=== PATIENT | female | born 1990 | race Caucasian/White ===

== ENCOUNTER 2016-09-04 19:57 | Emergency (ER) | payer MEDICAID ==
[~2016-09-04] VITALS: Ht 152.4 cm; Wt 74.0 kg
[~2016-09-04 19:57] MED LIST: METO10TA PO
[2016-09-04 19:59] VITALS: BP 125/66; PULSE 79; RESP 15; TEMP 98.5; O2SAT 98
[2016-09-04] MEDS ORDERED: SODIUM CHLORIDE 0.9% FLUSH 5 ML FLUSH IVF PRN (23:00)
[2016-09-04 23:52] LABS: BACTERIA, URINE RARE /hpf; BLOOD, URINE NEG (NEG); COMMENT (UR) CULT NOT INDICATED; CULTURE IF INDICATED CULT NOT INDICATED; GLUCOSE,URINE NEG (NEG); KETONE, URINE NEG (NEG); MUCUS URINE FEW /lpf (OCC); NITRITE,URINE NEG (NEG); PH, URINE 6.5 (5.0-8.5); SQUAMOUS EPITHELIAL CELL URINE 5 /hpf (0-5); URINE COLOR YELLOW (YELLW/STRAW)
[2016-09-05] MEDS ORDERED: CLOT1CRE23 VAGINAL (02:06)
[2016-09-05] MEDS ORDERED: MACR100C2 PO (02:06)
--- NOTE | 2016-09-05 02:08 | PD ---
HPI Chief Complaint: Related Problem Time Seen by Provider: 22:50 Travel History International Travel<30 days: No Contact w/Intl Traveler<30days: No Traveled to known affect area: No History of Present Illness HPI Patient is a pleasant 25-year-old female at approximately 8 weeks gestational age presents emergency Department with vaginal bleeding and lower quadrant abdominal cramping for the past week on and off. Patient states she has not had establishment with an MEDICAL SUPPORT ASSISTANT yet and has not had an ultrasound yet this . She states the pain is fairly mild but she did not have it with her previous pregnancies and one to be checked out. She denies any nausea vomiting diarrhea constipation or blood in the stool blood in her urine. States blood is very faint and comes in with some mild discharge. PFSH Past Medical History Diminished Hearing: No Reproductive: Yes (irregular periods) Influenza Vaccination: No ?: LMP: 06/23/16 : 3 Para: 2 Social History Alcohol Use: No Tobacco Use: No Substance Use: No Allergies-Medications (Allergen,Severity, Reaction): Coded Allergies: No Known Allergies (Verified , 09/04/16) Reported Meds & Prescriptions Reported Meds & Active Scripts Active Clotrimazole 7 Vaginal (Clotrimazole Vaginal) 1% Cream 1 Appl VAGINAL HS Macrobid (Nitrofurantoin Monoh/Nitrofur Macro) 100 Mg Cap 100 Mg PO BID 7 Days Review of Systems Except as stated in HPI: all other systems reviewed are Neg Physical Exam Narrative GENERAL: Well-developed well-nourished no apparent distress] SKIN: Warm and dry. HEAD: Atraumatic. Normocephalic. EYES: Pupils equal and round. No scleral icterus. No injection or drainage. ENT: No nasal bleeding or discharge. Mucous membranes pink and moist. NECK: Trachea midline. No JVD. CARDIOVASCULAR: Regular rate and rhythm. No murmur appreciated. RESPIRATORY: No accessory muscle use. Clear to auscultation. Breath sounds equal bilaterally. GASTROINTESTINAL: Abdomen soft, non-tender, nondistended. Hepatic and splenic margins not palpable. Genitourinary: Patient exam performed with female nurse industrial sweeper cleaner at all times, has trace vaginal blood mixed with her mucous. No cervical motion tenderness, cervix closed, no bimanual tenderness. No external lesion. There is scant discharge in the vaginal vault. MUSCULOSKELETAL: No obvious deformities. No clubbing. No cyanosis. No edema. NEUROLOGICAL: Awake and alert. No obvious cranial nerve deficits. Motor grossly within normal limits. Normal speech. PSYCHIATRIC: Appropriate mood and affect; insight and judgment normal. Data Data Last Documented VS Vital Signs Date Time Temp Pulse Resp B/P Pulse Ox O2 Delivery O2 Flow Rate FiO2 09/04/16 19:59 98.5 79 15 125/66 98 Room Air Orders Sodium Chloride 0.9% Flush (Ns Flush) (09/04/16 23:00) Ed Poc Ultrasound (09/04/16 22:50) Urinalysis - C+S If Indicated (09/04/16 23:12) Gc And Chlamydia Pcr (09/04/16 23:12) Wet Prep Profile (09/04/16 23:12) Labs Laboratory Tests Test 09/04/16 09/05/16 22:55 02:10 Urine Color YELLOW Urine Turbidity HAZY Urine pH 6.5 Urine Specific [place] 1.012 Urine Protein NEG mg/dL Urine Glucose (UA) NEG mg/dL Urine Ketones NEG mg/dL Urine Occult Blood NEG Urine Nitrite NEG Urine Bilirubin NEG Urine Urobilinogen LESS THAN 2.0 MG/DL Urine Leukocyte Esterase NEG Urine RBC LESS THAN 1 /hpf Urine WBC 4 /hpf Urine Squamous Epithelial 5 /hpf Cells Urine Bacteria RARE /hpf Urine Mucus FEW /lpf Urine Yeast (Budding) RARE Microscopic Urinalysis Comment CULT NOT INDICATED Clue Cells (Wet Prep) NONE SEEN Vaginal Trichomonas (Wet Prep) NONE SEEN Vaginal Yeast (Wet Prep) NONE SEEN Chlamydia trachomatis DNA NOT DETECTED (PCR) Neisseria gonorrhoeae DNA NOT DETECTED (PCR) [facility] Medical Decision Making Medical Screen Exam Complete: Yes Emergency Medical Condition: Yes Differential Diagnosis UTI, recent magnetic bacteria, yeast infection, ectopic , , round ligament pain Narrative Course Patient was roomed in the emergency department, she appears well and in no apparent distress. She was offered pain medicine and she declined. Pelvic exam does show some mild blood-tinged discharge which is very minimal. She does have yeast and bacteria in her urine. Consider contamination from bacterial source however there is not a curd-like discharge is visible. Bedside ultrasound is reassuring for intrauterine . Patient was counseled on early treatment and she feels better having seen the ultrasound. We'll cover with clotrimazole as well as Macrobid. She stable for discharge. Discussed adding multivitamins and follow him up with an MEDICAL SUPPORT ASSISTANT at her earliest venous. Positive by previous test here. Procedures Procedure Narrative Bedside transabdominal ultrasound: Patient's transabdominal bedside ultrasound shows a single intrauterine at approximately 8 weeks gestational age by crown-rump length. heart tones observed and measured by M-mode 156 please per minute. This early intrauterine . No gross abnormalities seen. Diagnosis Primary Impression: Yeast infection Additional Impression: Asymptomatic bacteriuria Med/Other Pt SpecificInfo: Prescription(s) given Scripts Clotrimazole Vaginal (Clotrimazole 7 Vaginal)1% Cream1 Appl VAGINAL HS #45 GM Ref 0 Prov:Cisco Milner MD 09/05/16 Nitrofurantoin Monohydrate Macrocrystals (Macrobid)100 Mg [id number] Mg PO BID 7 Days Ref 0 Prov:Cisco Milner MD 09/05/16 Disposition: 01 DISCHARGE HOME Condition: Stable Cisco Milner MD Sep 05, 2016 02:08
[2016-09-05 05:09] LABS: CHLAMYDIA PCR NOT DETECTED (NOT DETECT); NEISSERIA PCR NOT DETECTED (NOT DETECT)
[2016-11-12] MEDS ORDERED: MACR100C2 PO (14:41)
[2016-11-12] MEDS ORDERED: PREN1MIS11 PO (14:41)
[2016-11-12] MEDS ORDERED: METR0.7528 VAGINAL (14:41)
== END 2016-09-05 02:51 | disposition home or self-care (01) ==
LOC: NEPE 19:57
DX: O98.811 Other maternal infectious and parasitic diseases complicating pregnancy, first trimester (principal); B37.9 Candidiasis, unspecified; O26.891 Other specified pregnancy related conditions, first trimester; R82.71 Bacteriuria; R10.30 Lower abdominal pain, unspecified; Z3A.08 8 weeks gestation of pregnancy
CPT/HCPCS: 81001; 84703; 87210; 87491; 87591; 99284

== ENCOUNTER 2016-09-17 00:29 | Emergency (ER) | payer MEDICAID ==
[~2016-09-17] VITALS: Ht 157.5 cm; Wt 75.0 kg
[~2016-09-17 00:29] MED LIST changes: +CLOT1CRE23 VAGINAL; +MACR100C2 PO; -METO10TA PO
[2016-09-17 00:31] VITALS: BP 117/65; PULSE 73; RESP 16; TEMP 97.9; O2SAT 98
[2016-09-17] MEDS ORDERED: LIDOCAINE VISCOUS 2% SOLN 15 ML UDC OTHER STA (02:08)
--- NOTE | 2016-09-17 02:21 | PD ---
HPI Chief Complaint: ENT Complaint Time Seen by Provider: 02:20 Travel History International Travel<30 days: No Contact w/Intl Traveler<30days: No Traveled to known affect area: No History of Present Illness HPI Patient comes in complaining of bug in her ear that she awoke her from her sleep shortly prior to arrival. Patient denies doing anything for this prior to coming to the emergency department. Patient states she feels something crawling around in her right ear. Patient denies any pain or decreased hearing with this. PFSH Past Medical History Diminished Hearing: No Reproductive: Yes (irregular periods) ?: Unknown : 3 Para: 2 Social History Alcohol Use: No Tobacco Use: No Substance Use: No Allergies-Medications (Allergen,Severity, Reaction): Coded Allergies: No Known Allergies (Verified , 09/17/16) Reported Meds & Prescriptions Reported Meds & Active Scripts Active Clotrimazole 7 Vaginal (Clotrimazole Vaginal) 1% Cream 1 Appl VAGINAL HS Macrobid (Nitrofurantoin Monoh/Nitrofur Macro) 100 Mg Cap 100 Mg PO BID 7 Days Review of Systems Except as stated in HPI: all other systems reviewed are Neg Physical Exam Narrative GENERAL: Well-developed, well nourished, in no acute distress, and non-ill appearing. SKIN: Warm and dry. HEAD: Atraumatic. Normocephalic. EYES: Pupils equal and round. EOMI. No scleral icterus. No injection or drainage. ENT: No nasal bleeding or discharge. Mucous membranes pink and moist. Foreign body noted right auditory canal appears to be insect of some kind. Tympanic membrane pearly mata. NECK: Trachea midline. Supple. No nuclear rigidity. RESPIRATORY: No accessory muscle use. No respiratory distress. MUSCULOSKELETAL: No obvious deformities. No clubbing. No cyanosis. No edema. Full range of motion. NEUROLOGICAL: Awake and alert. No obvious cranial nerve deficits. Motor grossly within normal limits. Normal speech. PSYCHIATRIC: Appropriate mood and affect; insight and judgment normal. Data Data Last Documented VS Vital Signs Date Time Temp Pulse Resp B/P Pulse Ox O2 Delivery O2 Flow Rate FiO2 09/17/16 00:31 97.9 73 16 117/65 98 Room Air Orders Lidocaine 2% Viscous (Xylocaine 2% Visco (09/17/16 02:08) [facility] Medical Decision Making Medical Screen Exam Complete: Yes Emergency Medical Condition: Yes Differential Diagnosis Foreign body, otitis media, otitis externa, other Narrative Course Patient in no obvious distress upon re-evaluation. Any questions/concerns in reference to patient diagnosis/condition discussed and clarified prior to patient's discharge. Follow up with patient's primary physician or primary care clinic as needed. Instructed patient to return to ED immediately, if symptoms return/worsen. Pt showed understanding of above instructions. Further instructions and recommendations were detailed in discharge paperwork. Pt ambulated without difficulty out of ED at discharge. Procedures Procedure Narrative Verbal consent was obtained. Viscous lidocaine cane was placed in right auditory canal. Right ear was then flushed with insect being easily extracted. There is no complications. Patient tolerated procedure well Diagnosis Primary Impression: Foreign body of ear, right Qualified Code: T16.1XXA - Foreign body of ear, right, initial encounter Patient Instructions: Ear Foreign Body (GEN), General Instructions Additional Instructions: Follow-up with your primary care physician as needed. Return to the emergency department if symptoms get worse. Disposition: 01 DISCHARGE HOME Condition: Stable Cruz Pinedo Sep 17, 2016 02:21
[2016-11-12] MEDS ORDERED: PREN1MIS11 PO (14:41)
[2016-11-12] MEDS ORDERED: METR0.7528 VAGINAL (14:41)
[2016-11-12] MEDS ORDERED: MACR100C2 PO (14:41)
== END 2016-09-17 03:11 | disposition home or self-care (01) ==
LOC: NEPB 00:29
DX: T16.1XXA Foreign body in right ear, initial encounter (principal)
CPT/HCPCS: 69200

== ENCOUNTER 2017-04-08 18:56 | Inpatient (IN) | payer MEDICAID ==
[~2017-04-08] VITALS: Ht 152.4 cm; Wt 82.0 kg
[2017-04-08] VITALS (26 sets, daily range): BP systolic 107–177; BP diastolic 65–94; PULSE 75–150; RESP 18–20; TEMP 98.7
[~2017-04-08 18:56] MED LIST changes: -CLOT1CRE23 VAGINAL; +DIPHTH/TETANUS/ACEL PERTUSSIS (BOOSTER) 0.5 ML VIAL/PFS IM ONE; -MACR100C2 PO; +MEASLES, MUMPS, RUBELLA VACCINE 0.5 ML VIAL SQ ONE; +PREN1CHW7 PO; +PREN1MIS11 PO
[2017-04-08] MEDS ORDERED: LACTATED RINGER'S 1000 ML INJ 1,000 ML IV SCH (19:29)
[2017-04-08] MEDS ORDERED: LACTATED RINGER'S 1000 ML INJ 1,000 ML IV PRN (19:29)
[2017-04-08] MEDS ORDERED: OXYTOCIN 30 UNITS-500ML PREMIX 500 ML IV ONE (19:30)
[2017-04-08] MEDS ORDERED: MINERAL OIL 10 ML VIAL TOPICAL PRN (19:30)
[2017-04-08] MEDS ORDERED: LIDOCAINE HCL 1% 50 ML VIAL I-DERMAL PRN (19:30)
[2017-04-08] MEDS ORDERED: CITRIC ACID-SODIUM CITRATE LIQ 30 ML UDC PO SCH (19:30)
[2017-04-08] MEDS ORDERED: LIDOCAINE HCL 1% 50 ML VIAL INFIL PRN (19:30)
[2017-04-08] MEDS ORDERED: SODIUM CHLORID 0.9% 500 ML INJ 500 ML IV PRN (19:30)
--- NOTE | 2017-04-08 19:36 | HHI.HP ---
HPI Chief Complaint Contractions Date Seen: Apr 08, 2017 Time Seen: 19:33 Travel History International Travel<30 Days: No Contact w/Intl Traveler<30Days: No Known Affected Area: No History of Present Illness HPI 6-year-old 39 weeks [facility] presents clinically contractions. She is dilated 7 cm on admission in triage, contractions regular heart tones are within normal limits and her at reactive Weeks Gestation: 39 Para: 2 : 3 Last Menstrual Period: Apr 08, 2017 History Obstetric History Obstetric History 2 vaginal deliveries Social History Alcohol Use: No Tobacco Use: No Substance Abuse: No Allergies-Medications (Allergen,Severity, Reaction): Coded Allergies: No Known Allergies (Verified , 03/31/17) Home Meds Active Scripts Vit W/ Ferric Phospha (Vitafol Gummies 3.33-0.333-34.8 mg) 1 Chw Chw, 3 TAB PO DAILY, #90 BOTTLE 6 Refills Prov:Nicole Parker 03/03/17 W/O Vit A W/ Fe Carbo Pack (Citranatal 90 Dha Pack) 90-1 & 300 Mg Pack , 1 EA PO DAILY for Nutritional Supplement, #30 BLISTER 10 Refills 30 day supply. Prov:Mary Jane Chang CNM [facility] 11/12/16 Review of Systems General / Constitutional: No: Fever, Weight Gain, Chills, Other Eyes: No: Diploplia, Blurred Vision, Visual changes, Pain, Photophobia HENT: No: Headaches, Vertigo, Lightheadedness Cardiovascular: No: Irregular Rhythm, Chest Pain or Discomfort, Palpitations, Tachycardia, Syncope, Varicosities, Edema, Cyanosis Respiratory: No: Cough, Short of Breath, Other Gastrointestinal: Abdominal Pain, No: Nausea, Vomiting, Diarrhea Genitourinary: No: Decreased Urinary Output, Oliguria Musculoskeletal: No: Limited ROM, Weakness, Cramping, Edema, Pain Skin: No Rash, No Itching, No Dryness, No Lumps, No Change in Pigmentation, No Change in Nails, No Alopecia, No Lesions Neurologic: No: Weakness, Dizziness, Syncope, Focal Abnormalities, Coordination Problem, Headache, Slurred Speech, Seizures Psychiatric: No: Depression, Suicidal Ideations, Homicidal Ideation Endocrine: No: Heat Intolerance, Cold Intolerance, Polydipsia, Polyuria, Other Physical Exam Narrative GENERAL: Well-nourished, well-developed patient. SKIN: Warm and dry. HEAD: Normocephalic and atraumatic. EYES: No scleral icterus. No injection or drainage. ENT: No nasal drainage noted. Mucous membranes pink. Airway patent. NECK: Supple, trachea midline. No JVD. CARDIOVASCULAR: Regular rate and rhythm without murmurs, gallops, or rubs. RESPIRATORY: Breath sounds equal bilaterally. No accessory muscle use. BREASTS: Bilateral exam showed no masses , no retractions, no nipple discharge. ABDOMEN/GI: Abdomen soft, non-tender, bowel sounds present, no rebound, no guarding Gravid to [-39] weeks size Fundal Height: [39-] GENITOURINARY: External Genitalia: intact and normal in appearance BUS glands: [-] Cervix: [-] Dilatation: [7-] Effacement: [-100] Station: [-1] Presentation: [vtx-] Membranes: [intact ] Uterine Contractions: [reg-] FHT's: Category: [1-] Baseline: [-133] Reactive: [yes-] Variability: [mod-] Decels: [0-] EXTREMITIES: No cyanosis or edema. BACK: Nontender without obvious deformity. No CVA tenderness. NEUROLOGICAL: Awake and alert. Motor and sensory grossly within normal limits. Five out of 5 muscle strength in all muscle groups. Normal speech. Caprini VTE Risk Assessment Caprini VTE Risk Assessment: No/Low Risk (score <= 1) Caprini Risk Assessment Model Point Value = 1 Point Value = 2 Point Value = 3 Point Value = 5 Age 41-60 Minor surgery BMI > 25 kg/m2 Swollen legs Varicose veins or History of unexplained or recurrent spontaneous Oral contraceptives or hormone replacement Sepsis (< 1 month) Serious lung disease, including pneumonia (< 1 month) Abnormal pulmonary function Acute myocardial infarction Congestive heart failure (< 1 month) History of inflammatory bowel disease Medical patient at bed rest Age 61-74 Arthroscopic surgery Major open surgery (> 45 min) Laparoscopic surgery (> 45 min) Malignancy Confined to bed (> 72 hours) Immobilizing plaster cast Central venous access Age >= 75 History of VTE Family history of VTE Factor V Leiden Prothrombin [id number] Lupus anticoagulant Anticardiolipin antibodies Elevated serum homocysteine Heparin-induced thrombocytopenia Other congenital or acquired thrombophilia Stroke (< 1 month) Elective arthroplasty Hip, pelvis, or leg fracture Acute spinal cord injury (< 1 month) Prophylaxis Regimen Total Risk Factor Score Risk Level Prophylaxis Regimen 0-1 Low Early ambulation 2 Moderate Order ONE of the following: *Sequential Compression Device (SCD) *Heparin 5000 units SQ BID 3-4 Higher Order ONE of the following medications: *Heparin 5000 units SQ TID *Enoxaparin/Lovenox 40 mg SQ daily (WT < 150 kg, CrCl > 30 mL/min) *Enoxaparin/Lovenox 30 mg SQ daily (WT < 150 kg, CrCl > 10-29 mL/min) *Enoxaparin/Lovenox 30 mg SQ BID (WT < 150 kg, CrCl > 30 mL/min) AND/OR *Sequential Compression Device (SCD) 5 or more Highest Order ONE of the following medications: *Heparin 5000 units SQ TID (Preferred with Epidurals) *Enoxaparin/Lovenox 40 mg SQ daily (WT < 150 kg, CrCl > 30 mL/min) *Enoxaparin/Lovenox 30 mg SQ daily (WT < 150 kg, CrCl > 10-29 mL/min) *Enoxaparin/Lovenox 30 mg SQ BID (WT < 150 kg, CrCl > 30 mL/min) AND *Sequential Compression Device (SCD) Data Data Orders Orders Ob (2e) Additional Admit Info (04/08/17 19:26) Admit To Inpatient (04/08/17 ) Vital Signs (Adult) .Per protocol (04/08/17 19:29) Heart (04/08/17 19:29) Amnioinfusion (04/08/17 19:29) Urinary Catheter Management .ONCE (04/08/17 19:29) Diet Liquid (04/09/17 Breakfast) Lactated Ringer's 1000 Ml Inj (Lr 1000 M (04/08/17 19:29) Lactated Ringer's 1000 Ml Inj (Lr 1000 M (04/08/17 19:29) Sodium Chlorid 0.9% 500 Ml Inj (Ns 500 M (04/08/17 19:30) Sodium Chlor 0.9% 1000 Ml Inj (Ns 1000 M (04/08/17 19:49) Lidocaine 1% Inj (50 Ml) (Xylocaine 1% I (04/08/17 19:30) Citric Acid-Sodium Citrate Liq (Bicitra (04/08/17 19:30) Fentanyl Inj (Fentanyl Inj) (04/08/17 19:30) Fentanyl Inj (Fentanyl Inj) (04/08/17 19:30) Complete Blood Count With Diff (04/08/17 19:29) Hold Clot (04/08/17 19:29) Abo/Rh Blood Type (04/08/17 19:29) Urinalysis - C+S If Indicated (04/08/17 19:29) Resp Oxygen Non Rebreathe Mask (04/08/17 ) ^ Epidural / Intrathecal Infus (04/08/17 19:29) Oxytocin 30 Units-500ml Premix (Pitocin (04/08/17 19:30) Lidocaine 1% Inj (50 Ml) (Xylocaine 1% I (04/08/17 19:30) Light Mineral Oil (Muri-Lube Oil) (04/08/17 19:30) Assessment/Plan Assessment and Plan 26-year-old 39 weeks presents in active labor, dilated 7 cm on inherent OB ED with a bulging bag. heart tracing is reactive contractions are regular, she has no bleeding or leakage of fluid. [facility]ly [facility] clinic Impression-39 weeks in active labor Plans admission managed labor anticipate vaginal delivery Shayne Parmar II, MD Apr 08, 2017 19:36
[2017-04-08] MEDS ORDERED: SODIUM CHLOR 0.9% 1000 ML INJ 1,000 ML IV PRN (19:49)
[2017-04-08 20:13] LABS: BLOOD, URINE SMALL (NEG); COMMENT (UR) CULTURE INDICATED; CULTURE IF INDICATED CULTURE INDICATED; GLUCOSE,URINE NEG (NEG); KETONE, URINE NEG (NEG); NITRITE,URINE NEG (NEG); SQUAMOUS EPITHELIAL CELL URINE 6 /hpf (0-5); URINE COLOR YELLOW (YELLW/STRAW)
[2017-04-08] MEDS ORDERED: fentaNYL 2MCG-BUPIV 0.125% INJ 100 ML ONE (20:14)
[2017-04-08 20:15] LABS: AUTOMATED NEUTROPHIL # 7.1 TH/MM3 (1.8-7.7); BASOPHIL # 0.1 TH/MM3 (0-0.2); BASOPHIL % 1.1 % (0.0-2.0); EOSINOPHIL # 0.1 TH/MM3 (0-0.4); EOSINOPHIL % 1.3 % (0.0-4.0); HEMATOCRIT 37.4 % (35.0-46.0); HEMO FLAGS DIFF FINAL; LYMPH % 26.5 % (9.0-44.0); LYMPHOCYTE # 2.9 TH/MM3 (1.0-4.8); MEAN CORPUSCULAR HEMOGLOBIN 26.2 PG (27.0-34.0); MEAN CORPUSCULAR HGB CONC 32.7 % (32.0-36.0); MONO % 6.3 % (0.0-8.0); NEUT % 64.8 % (16.0-70.0); PLATELET COUNT 176 TH/MM3 (150-450); RED BLOOD COUNT 4.67 MIL/MM3 (4.00-5.30); RED CELL DISTRIBUTION WIDTH 15.7 % (11.6-17.2)
[2017-04-08 21:05] LABS: ANION GAP 9 MEQ/L (5-15); AST (GOT) 20 U/L (15-37); BICARBONATE 21.7 MEQ/L (21.0-32.0); BLOOD UREA NITROGEN 9 MG/DL (7-18); CHLORIDE 106 MEQ/L (98-107); GLOMERULAR FILTRATION RATE 148 ML/MIN (>89); POTASSIUM 3.8 MEQ/L (3.5-5.1); SODIUM (NA) 137 MEQ/L (136-145); URIC ACID 3.7 MG/DL (2.6-6.0)
[2017-04-08 21:06] LABS: ALT (GPT) 18 U/L (10-53)
[2017-04-08 21:08] LABS: ALKALINE PHOSPHATASE 266 U/L (45-117); TOTAL BILIRUBIN ADULT 0.3 MG/DL (0.2-1.0)
[2017-04-08] MEDS ORDERED: NO SYSTEM NARCOTICS PRN (22:15)
[2017-04-08] MEDS ORDERED: fentaNYL 2MCG-BUPIV 0.125% 100 ML EPIDURAL SCH ×2 (22:15)
[2017-04-08] MEDS ORDERED: ePHEDrine/NS 25 MG/5 ML SYR IV PUSH PRN (22:15)
[2017-04-08] MEDS ORDERED: DO NOT ADMINISTER ANTICOAGULANTS PRN (22:15)
[2017-04-08] MEDS ORDERED: MISOPROSTOL 200 MCG TAB ONE (23:14)
[2017-04-08] MEDS ORDERED: METHYLERGONOVINE MALEATE 0.2 MG/ML VIAL ONE (23:15)
--- NOTE | 2017-04-08 23:21 | PD.OB.DELI ---
Weeks gestation: 39 Gest age assessed date: Apr 08, 2017 Gest age assessed time: 20:00 Pt started active labor?: Yes Active labor start date: Apr 08, 2017 Active labor start time: 17:00 Medical induction of labor?: No Artificial rupture of membrane: Yes Artificial ROM date: Apr 08, 2017 Artifical ROM time: 21:00 Anesthesia: Epidural Episiotomy: None Vaginal Delivery: Normal Presentation: Occiput anterior Nuchal Cord: None Delayed cord clamping (45 sec): Yes Infant: Female Delivery date: Apr 08, 2017 Delivery time: 23:10 One Minute : 9 Five Minute : 9 Weight: 3380 gm Placenta: Spontaneous delivery, Intact Laceration: No lacerations Estimated blood loss: 200 Additional Information bleeding briskly after delivery of placenta - decreased with massage of fundus , also 600 mg cytotec placed rectally Shayne Parmar II, MD Apr 08, 2017 23:21
[2017-04-08] MEDS ORDERED: SODIUM CHLORIDE 0.9% FLUSH 10 ML FLUSH IV FLUSH PRN (23:30)
[2017-04-08] MEDS ORDERED: WITCH HAZEL 50%/GLYCERIN 12.5% 40 PAD JAR TOPICAL PRN (23:30)
[2017-04-08] MEDS ORDERED: ACETAMINOPHEN 325 MG TAB PO PRN (23:30)
[2017-04-08] MEDS ORDERED: OXYTOCIN 30 UNITS-500ML PREMIX 500 ML IV SCH (23:30)
[2017-04-08] MEDS ORDERED: DOCUSATE SODIUM 50 MG/SENNA 8.6 MG TAB PO PRN (23:30)
[2017-04-08] MEDS ORDERED: ONDANSETRON ODT 4 MG TAB PO PRN (23:30)
[2017-04-08] MEDS ORDERED: BENZOCAINE 20% TOPICAL SPRAY 60 ML CAN TOPICAL PRN (23:30)
[2017-04-08] MEDS ORDERED: oxyCODONE/ACETAMINOPHEN 5 MG/325 MG TAB PO PRN (23:30)
[2017-04-08] MEDS ORDERED: ZOLPIDEM TARTRATE 5 MG TAB PO PRN (23:30)
[2017-04-08] MEDS ORDERED: ALUMINUM/MAGNESIUM/SIMETH 30 ML CUP PO PRN (23:30)
[2017-04-09] VITALS: BP 125/68; PULSE 101
[2017-04-09 01:45] VITALS: RESP 20
[2017-04-09 02:36] VITALS: BP 111/63; PULSE 87; RESP 20; TEMP 98.9; O2SAT 96
[2017-04-09 07:40] VITALS: BP 102/61; PULSE 88; RESP 16; TEMP 98.4; O2SAT 98
[2017-04-09] MEDS ORDERED: SODIUM CHLORIDE 0.9% FLUSH 10 ML FLUSH IV FLUSH SCH (09:00)
--- NOTE | 2017-04-09 09:23 | HHI.OB ---
Subjective Post Day: 1 Remarks German-speaking only. Afebrile overnight, vitals within normal limits. Patient has minimal pain and bleeding. Ambulating appropriately. Adequate I/O. Feeding baby via breast. Passing gas, no BM. No other complaints, patient doing well. Objective Vitals/I&O Vital Signs Date Time Temp Pulse Resp B/P (MAP) Pulse Ox O2 Delivery O2 Flow Rate FiO2 04/09/17 07:40 98.4 88 16 102/61 (75) 98 04/09/17 02:36 98.9 87 20 111/63 (79) 96 04/09/17 01:45 20 04/09/17 00:00 101 04/09/17 00:00 125/68 (87) 04/08/17 23:55 98.7 04/08/17 23:45 94 04/08/17 23:30 124/65 (84) 04/08/17 23:28 125/76 (92) 04/08/17 23:15 91 124/68 (86) 04/08/17 23:15 20 04/08/17 23:12 93 130/67 (88) 04/08/17 22:45 159/88 (111) 04/08/17 22:30 84 04/08/17 22:30 135/87 (103) 04/08/17 22:23 18 04/08/17 22:15 89 136/70 (92) 04/08/17 22:00 90 117/86 (96) 04/08/17 21:45 85 18 04/08/17 21:45 107/90 (96) 04/08/17 21:30 84 135/71 (92) 04/08/17 21:15 80 158/71 (100) 04/08/17 21:15 18 04/08/17 21:03 150 04/08/17 21:03 119/90 (100) 04/08/17 21:00 100 139/70 (93) 04/08/17 20:57 80 117/93 (101) 04/08/17 20:54 133/74 (93) 04/08/17 20:51 127/77 (94) 04/08/17 20:48 134/75 (94) 04/08/17 20:45 137/74 (95) 04/08/17 20:44 83 04/08/17 20:44 122/87 (99) 04/08/17 20:40 88 04/08/17 20:37 20 04/08/17 20:36 75 170/94 (119) 04/08/17 19:46 83 04/08/17 19:46 177/94 (121) Objective Remarks GENERAL: Well-nourished, well-developed patient. CARDIOVASCULAR: Regular rate and rhythm without murmurs, gallops, or rubs. RESPIRATORY: Breath sounds equal bilaterally. No accessory muscle use. ABDOMEN/GI: Abdomen soft, non-tender. Fundus: Firm, non-tender at umbilicus. GENITOURINARY: Light to moderate bleeding. EXTREMITIES: No cyanosis or edema, non-tender, without signs of DVT. Medications and IVs Current Medications Medications (Trade) Dose Ordered Sig/Mel Route Start Time Stop Time Status Last Admin (NS Flush) 2 ml BID IV FLUSH 04/09/17 09:00 (NS Flush) 2 ml UNSCH PRN IV FLUSH 04/08/17 23:30 (Tylenol) 650 mg Q4H PRN PO 04/08/17 23:30 (Motrin) 600 mg Q6H PRN PO 04/08/17 23:30 (Percocet 5-325 Mg) 1 tab Q4H PRN PO 04/08/17 23:30 (Americaine 20% Top Spr) 1 spray Q4H PRN TOPICAL 04/08/17 23:30 (Tucks Pads) 1 applic QID PRN TOPICAL 04/08/17 23:30 (Mary-Colace) 2 tab Q12H PRN PO 04/08/17 23:30 (Ambien) 5 mg HS PRN PO 04/08/17 23:30 (Mag-Al Plus Susp Liq) 15 ml Q8H PRN PO 04/08/17 23:30 (Zofran Odt) 4 mg Q6H PRN PO 04/08/17 23:30 Assessment/Plan Assessment and Plan 26y/o who is PPD#1 s/p . -Continue routine care. -Percocet and Motrin PRN pain. -Encouraged OOB. Advised pelvic rest for 6 wks. -Will need a f/u appt. within 6 wks. -D/c in 1 more day. wdw OB attending Dinorah Slade MD R1 Apr 09, 2017 09:22
[2017-04-09 20:00] VITALS: BP 116/70; PULSE 88; RESP 16; TEMP 98.7; O2SAT 96
[2017-04-10] MEDS: IBUPROFEN 600 MG TAB PO PRN ×2 (05:37→12:28)
[2017-04-10 07:48] VITALS: BP 111/70; PULSE 79; RESP 18; TEMP 98.1
[2017-04-10] MEDS ORDERED: SENN1TAB PO (07:49)
[2017-04-10] MEDS ORDERED: IBUP-232 PO (07:49)
--- NOTE | 2017-04-10 08:07 | HHI.DCPOC ---
Discharge Care Plan Diagnosis: (1) care following vaginal delivery Report Symptoms to Your Doctor -Temperature above 100.5 degrees -Redness, of incision or excessive or foul smelling drainage -Unusual pain or calf pain -Increased vaginal bleeding -Painful or difficulty urinating -Feelings of extreme sadness or anxiety after 2 weeks Goals to Promote Your Health * To prevent worsening of your condition and complications * To maintain your health at the optimal level Directions to Meet Your Goals Take your medications as prescribed Follow your dietary instruction Follow activity as directed Ensure plenty of rest for recovery Drink fluids for hydration Keep your appointments as scheduled Take your immunizations and boosters as scheduled If your symptoms worsen call your PCP, if no PCP go to Urgent Care Center or Emergency Room Smoking is Dangerous to Your Health. Avoid second hand smoke Call the 24-hour crisis hotline for domestic abuse at Harlan Cuevas MD, R2 Apr 10, 2017 08:07
--- NOTE | 2017-04-10 08:07 | HHI.OB ---
Subjective Post Day: 2 Remarks day #2. AFVSS overnight. Pain minimal. Decreased lochia. Denies dysuria. No breast tenderness. She is feeding the baby via breast. Appetite good. No nausea or vomiting. Endorses flatus. No bowel movement. Ambulating well. Denies calf pain, shortness of breath, or cough. Otherwise, she is doing well this morning and has no other complaints. Objective Vitals/I&O Vital Signs Date Time Temp Pulse Resp B/P (MAP) Pulse Ox O2 Delivery O2 Flow Rate FiO2 04/10/17 07:48 98.1 79 18 04/10/17 07:48 111/70 (84) 04/09/17 20:00 116/70 (85) 04/09/17 20:00 98.7 88 16 96 Objective Remarks GENERAL: Well-nourished, well-developed patient. CARDIOVASCULAR: Regular rate and rhythm without murmurs, gallops, or rubs. RESPIRATORY: Breath sounds equal bilaterally. No accessory muscle use. ABDOMEN/GI: Abdomen soft, non-tender. Fundus: Firm, non-tender at umbilicus. GENITOURINARY: Light to moderate bleeding. EXTREMITIES: No cyanosis or edema, non-tender, without signs of DVT. Medications and IVs Current Medications Medications (Trade) Dose Ordered Sig/Mel Route Start Time Stop Time Status Last Admin (NS Flush) 2 ml BID IV FLUSH 04/09/17 09:00 (NS Flush) 2 ml UNSCH PRN IV FLUSH 04/08/17 23:30 (Tylenol) 650 mg Q4H PRN PO 04/08/17 23:30 (Motrin) 600 mg Q6H PRN PO 04/08/17 23:30 04/10/17 05:37 (Percocet 5-325 Mg) 1 tab Q4H PRN PO 04/08/17 23:30 (Americaine 20% Top Spr) 1 spray Q4H PRN TOPICAL 04/08/17 23:30 (Tucks Pads) 1 applic QID PRN TOPICAL 04/08/17 23:30 (Mary-Colace) 2 tab Q12H PRN PO 04/08/17 23:30 04/10/17 05:37 (Ambien) 5 mg HS PRN PO 04/08/17 23:30 (Mag-Al Plus Susp Liq) 15 ml Q8H PRN PO 04/08/17 23:30 (Zofran Odt) 4 mg Q6H PRN PO 04/08/17 23:30 Assessment/Plan Assessment and Plan 26y/o who is PPD#2 s/p . -Continue routine care. -Percocet and Motrin PRN pain. -Encouraged OOB. Advised pelvic rest for 6 wks. -Will need a f/u appt. within 6 wks. -D/c today dw OB attending Harlan Cuevas MD, R2 Apr 10, 2017 08:07
== END 2017-04-10 13:18 | disposition home or self-care (01) | DRG 775 ==
LOC: HOBED 18:56 → H2EB 19:27 → H1EA 04-09 01:36
PROVIDERS: ADMIT Obstetrics & Gynecology Maternal & Fetal Medicine; ATTEND Obstetrics & Gynecology Maternal & Fetal Medicine
PROC: 10E0XZZ Delivery of Products of Conception, External Approach (ICD-10-PCS; principal; 2017-04-08)
PROC: 00HU33Z Insertion of Infusion Device into Spinal Canal, Percutaneous Approach (ICD-10-PCS; 2017-04-08)
PROC: 3E0R3BZ Introduction of Anesthetic Agent into Spinal Canal, Percutaneous Approach (ICD-10-PCS; 2017-04-08)
DX: O80 Encounter for full-term uncomplicated delivery (principal); Z37.0 Single live birth; Z3A.39 39 weeks gestation of pregnancy
CPT/HCPCS: 59025; 80053; 81001; 84550; 85025; 86900; 86901; 87086; 90715; J2210; J2590